=== PATIENT | male | born 1935 | race Caucasian/White ===

== ENCOUNTER 2018-10-09 17:23 | Emergency (ER) | payer OTHER ==
[~2018-10-09] VITALS: Ht 157.5 cm; Wt 61.6 kg
[~2018-10-09 17:23] MED LIST: AMLO5TAB4 PO; BENA20TA4 PO; DONE10TA7 PO; FOLI-49 PO; LEVO125T7 PO; SERT50TA6 PO; TERA2CAP3 PO
[2018-10-09 17:35] VITALS: Ht 157.5 cm; Wt 61.6 kg
[2018-10-09] MEDS ORDERED: ONDANSETRON 4 MG INJ IV STA (17:53)
[2018-10-09] MEDS ORDERED: morphine 4 MG/ML VIAL IV STA (17:53)
[2018-10-09] MEDS ORDERED: APIXABAN 5 MG TABLET PO ONE (19:00)
--- NOTE | 2018-10-09 21:20 | ERD ---
ER Documentation Chief Complaint Chief Complaint RIGHT LEG SWELLING, REDNESS X 2 WKS; SENT FOR R/O DVT; NO SOB. HPI Patient is an 82-year-old male with coronary disease, hypertension, anemia, and dementia who presents for right leg swelling. He started with right leg swelling 2 weeks ago. It went away but then came back 3 to 4 days ago. He was seen in the clinic today and was sent to the ER for further work-up. He complains of pain. He tried ibuprofen. ROS All systems reviewed and are negative except as per history of present illness. Medications Home Meds Reported Medications Amlodipine Besylate* (Norvasc*) 5 Mg Tablet, 5 MG PO DAILY, TAB 04/18/15 Sertraline Hcl* (Sertraline Hcl*) 50 Mg Tablet, 50 MG PO DAILY, #30 TAB 04/18/15 Levothyroxine Sodium* (Levothyroxine Sodium*) 125 Mcg Tablet, 125 MCG PO BEFORE BREAKFAST, #30 TAB 04/18/15 Terazosin Hcl* (Terazosin Hcl*) 2 Mg Capsule, 2 MG PO HS, CAP 04/18/15 Folic Acid* (Folic Acid*) 1 Mg Tablet, 1 MG PO DAILY, TAB 04/18/15 Benazepril Hcl* (Benazepril Hcl*) 20 Mg Tablet, 20 MG PO DAILY, #30 TAB 04/18/15 Donepezil* (Donepezil*) 10 Mg Tablet, 10 MG PO DAILY, #30 TAB 04/18/15 Allergies Allergies: Coded Allergies: No Known Allergies (Verified Allergy, Unknown, 09/22/15) PMhx/Soc History of Surgery: Yes (PROSTATE/hemorrhoids) Anesthesia Reaction: No Hx Neurological Disorder: No Hx Respiratory Disorders: No Hx Cardiac Disorders: Yes (HTN, HYPERLIPIDEMIA) Hx Psychiatric Problems: Yes (depression, dementia) Hx Miscellaneous Medical Probl: Yes (thyroid disease) Hx Alcohol Use: No Hx Substance Use: No Hx Tobacco Use: No Smoking Status: Never smoker FmHx Family History: No diabetes Physical Exam Vitals Vital Signs Date Temp Pulse Resp B/P (MAP) Pulse Ox O2 O2 Flow FiO2 Time Delivery Rate 10/09/18 97.4 67 12 130/77 98 Room Air 20:54 (94) 10/09/18 97.4 87 18 138/117 97 Room Air 19:55 (124) 10/09/18 97.4 69 18 120/72 97 Room Air 18:54 (88) 10/09/18 97.4 77 18 145/77 97 Room Air 18:05 (99) 10/09/18 97.4 82 18 151/81 97 17:35 (104) Physical Exam Const: No acute distress Head: Atraumatic Eyes: Normal Conjunctiva ENT: Normal External Ears, Nose and Mouth. Neck: Full range of motion. No meningismus. Resp: Clear to auscultation bilaterally Cardio: Regular rate and rhythm, no murmurs Abd: Soft, non tender, non distended. Normal bowel sounds Skin: No petechiae or rashes Back: No midline or flank tenderness Ext: Right leg swelling compared to the left with purplish discoloration Neur: Awake and alert Psych: Normal Mood and Affect Result Diagram: 10/09/18180410/09/181804 Results 24 hrs Laboratory Tests Test 10/09/18 18:05 White Blood Count 8.3 10^3/ul Red Blood Count 4.64 10^6/ul Hemoglobin 14.0 g/dl Hematocrit 40.1 % Mean Corpuscular Volume 86.4 fl Mean Corpuscular Hemoglobin 30.2 pg Mean Corpuscular Hemoglobin Concent 34.9 g/dl Red Cell Distribution Width 12.7 % Platelet Count 184 10^3/UL Mean Platelet Volume 9.1 fl Immature Granulocytes % 0.600 % Neutrophils % 74.8 % Lymphocytes % 15.0 % Monocytes % 8.1 % Eosinophils % 1.0 % Basophils % 0.5 % Nucleated Red Blood Cells % 0.0 /100WBC Immature Granulocytes # 0.050 10^3/ul Neutrophils # 6.2 10^3/ul Lymphocytes # 1.2 10^3/ul Monocytes # 0.7 10^3/ul Eosinophils # 0.1 10^3/ul Basophils # 0.0 10^3/ul Nucleated Red Blood Cells # 0.0 10^3/ul Prothrombin Time 12.7 Sec Prothrombin Time Ratio 1.0 INR International Normalized Ratio 0.94 Activated Partial Thromboplast Time 29.5 Sec Sodium Level 140 mmol/L Potassium Level 4.1 mmol/L Chloride Level 106 mmol/L Carbon Dioxide Level 23 mmol/L Anion Gap 11 Blood Urea Nitrogen 15 mg/dl Creatinine 0.99 mg/dl Est Glomerular Filtrat Rate mL/min mL/min Glucose Level 112 mg/dl Calcium Level 9.3 mg/dl Troponin I < 0.012 ng/ml Current Medications Medications Dose Sig/Raciel Start Time Status Last (Trade) Ordered Route PRN Stop Time Admin Dose Reason Admin Morphine 4 mg ONCE STAT 10/09/18 DC 10/09/18 Sulfate IV 17:53 17:59 (morphine) 10/09/18 17:55 Ondansetron 4 mg ONCE STAT 10/09/18 DC 10/09/18 HCl (Zofran IV 17:53 17:59 Inj) 10/09/18 17:55 Apixaban 10 mg ONCE ONCE 10/09/18 DC 10/09/18 (Eliquis) PO 19:00 19:07 10/09/18 19:01 Quetiapine 25 mg ONCE ONCE 10/09/18 10/09/18 Fumarate PO 21:30 21:13 (Seroquel) 10/09/18 21:31 Procedures/MDM Right lower extremity ultrasound shows positive for DVT per radiology.. Arterial ultrasound shows no acute arterial occlusion per radiology. Chest x-ray read by radiology. Patient is an 82-year-old male who presents with right leg swelling. Is found to have acute right-sided DVT. I gave a dose of Eliquis 10 mg by mouth. I spoke with Dr. Galeas from [facility] who is going to arrange transfer to a SNF and will dose outpatient anticoagulation at the SNF. I doubt pulmonary embolism at this time and the patient is in no distress. I doubt acute arterial occlusion. The patient will be discharged but can return for any worsening symptoms. He should follow-up with his primary doctor within 2 to 3 days. Departure Diagnosis: Primary Impression: DVT (deep vein thrombosis) in Additional Impression: Swelling Condition: Fair Patient Instructions: Dvt Additional Instructions: Llame al doctor MAANA y ugo nilson ARIS PARA DENTRO DE 2-3 COLLINS.Dgale a la secretaria que nosotros le instruimos hacer esta aris.Avise o llame si castellanos condicin se empeora antes de la aris. Regresa aqui si peor o no mejor. RUPA HINES MD Oct 09, 2018 21:20
[2018-10-09] MEDS ORDERED: QUETIAPINE 25 MG TAB PO ONE (21:30)
[2018-10-09] MEDS ORDERED: LORAZEPAM 2 MG INJ IV ONE (22:30)
[2018-10-09] MEDS ORDERED: APIX5TAB PO (23:48)
[2018-10-10] MEDS ORDERED: RANI150T5 PO (00:13)
[2018-10-10] MEDS ORDERED: LEVO75TA5 PO (00:13)
[2018-10-10] MEDS ORDERED: QUET25TA33 PO (00:13)
[2018-10-10 01:21] VITALS: BP 118/68; PULSE 60; RESP 12
== END 2018-10-10 01:21 | disposition home or self-care (01) ==
LOC: E/R 17:23
DX: I82.401 Acute embolism and thrombosis of unspecified deep veins of right lower extremity (principal); I10 Essential (primary) hypertension; I25.10 Atherosclerotic heart disease of native coronary artery without angina pectoris
CPT/HCPCS: 36415; 71045; 80048; 84484; 85025; 85610; 85730; 93922; 93971; 96374; 96375; 99285; J2060; J2270; J2405

== ENCOUNTER 2018-11-12 09:37 | Emergency (ER) | payer OTHER ==
[~2018-11-12] VITALS: Ht 162.6 cm; Wt 61.4 kg
[~2018-11-12 09:37] MED LIST changes: +APIX5TAB PO; -BENA20TA4 PO; -DONE10TA7 PO; +IBUP-1561 PO; +KTR.5OP5 BOTH EYES; -LEVO125T7 PO; +LEVO75TA5 PO; +OFLO5DRO46 LEFT EYE; +QUET25TA33 PO; +RANI150T5 PO; +TRAM50TA2 PO
[2018-11-12 09:50] VITALS: Ht 162.6 cm; Wt 61.4 kg
[2018-11-12 11:36] VITALS: BP 131/70; PULSE 88; RESP 20
--- NOTE | 2018-11-12 12:28 | ERD ---
ER Documentation Chief Complaint Chief Complaint left eye pain/irritation HPI 83-year-old male presenting with pain to his left eye. Patient was cutting a cactus at home and little bit of the milk from the cactus got into his eye and cause pain. He did not wear contacts or glasses. He tried cleaning it with refresh at home but no other medicine. Medical history is hypertension. NKDA. Surgical history denies. Social history denies ROS All systems reviewed and are negative except as per history of present illness. Medications Home Meds Active Scripts Ofloxacin* (Ocuflox*) 0.3%-5 Ml Ophth Drops, 1 DROP LEFT EYE QID, #1 BOTTLE Prov:KARLA SANABRIA PA-C 11/12/18 Apixaban* (Eliquis*) 5 Mg Tablet, 10 MG PO BID for 5 Days, TAB Prov:JACINTO ARIAS MD 10/09/18 Reported Medications Quetiapine Fumarate* (Quetiapine Fumarate*) 25 Mg Tablet, 25 MG PO HS, TAB 10/10/18 Ranitidine Hcl* (Ranitidine Hcl*) 150 Mg Tablet, 150 MG PO BID, #60 TAB 10/10/18 Levothyroxine Sodium* (Levothyroxine Sodium*) 75 Mcg Tablet, 75 MCG PO BEFORE BREAKFAST, #30 TAB 10/10/18 Amlodipine Besylate* (Norvasc*) 5 Mg Tablet, 5 MG PO QAM, TAB 04/18/15 Sertraline Hcl* (Sertraline Hcl*) 50 Mg Tablet, 50 MG PO QHS, #30 TAB 04/18/15 Terazosin Hcl* (Terazosin Hcl*) 2 Mg Capsule, 2 MG PO HS, CAP 04/18/15 Folic Acid* (Folic Acid*) 1 Mg Tablet, 1 MG PO DAILY, TAB 04/18/15 Allergies Allergies: Coded Allergies: No Known Allergies (Unverified Allergy, Unknown, 11/12/18) PMhx/Soc History of Surgery: Yes (PROSTATE/hemorrhoids) Anesthesia Reaction: No Hx Neurological Disorder: No Hx Respiratory Disorders: No Hx Cardiac Disorders: Yes (HTN, HYPERLIPIDEMIA) Hx Psychiatric Problems: Yes (depression, dementia) Hx Miscellaneous Medical Probl: Yes (thyroid disease) Hx Alcohol Use: No Hx Substance Use: No Hx Tobacco Use: No Smoking Status: Never smoker FmHx Family History: No diabetes, No coronary disease, No other Physical Exam Vitals Vital Signs Date Temp Pulse Resp B/P (MAP) Pulse Ox O2 O2 Flow FiO2 Time Delivery Rate 11/12/18 98.1 88 20 131/70 98 Room Air 11:36 (90) 11/12/18 98.1 86 20 127/74 98 09:50 (91) Physical Exam GENERAL: The patient is well-appearing, well-nourished, in no acute distress HEENT: Atraumatic. Conjunctivae are pink. Pupils equal, round, and reactive to light. There is no scleral icterus. Tympanic membranes clear bilaterally. Oropharynx clear. NECK: C-spine is soft and supple. There is no meningismus. There is no cervical lymphadenopathy. CHEST: Clear to auscultation bilaterally. There are no rales, wheezes or rhonchi. HEART: Regular rate and rhythm. No murmurs, clicks, rubs or gallops. Procedures/MDM ER course: Harshad lens was used in the ER to irrigate the eye. Patient tolerated procedure well. MDM: 83-year-old male presenting with irritation to left eye. I have low suspicion for ocular deficit or retained foreign body. 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 Patient is discharged with strict ER precautions. I have low suspicion for other injury at this time and I do not feel blood work or imaging is indicated. Patient told to follow-up with primary care. All questions answered at discharge Departure Diagnosis: Primary Impression: Chemical exposure of eye Condition: Stable Patient Instructions: Eye Exposure, Chemical Referrals: [facility] Hours: Sat - Sat 9:00 AM - 5:00 PM Additional Instructions: FOLLOW UP WITH YOUR PRIMARY CARE PHYSICIAN TOMORROW.Return to this facility if you are not improving as expected. KARLA SANABRIA PA-C Nov 12, 2018 12:28
== END 2018-11-12 11:42 | disposition home or self-care (01) ==
LOC: FTE 09:37
DX: T62.2X1A Toxic effect of other ingested (parts of) plant(s), accidental (unintentional), initial encounter (principal); I10 Essential (primary) hypertension
CPT/HCPCS: 99283

== ENCOUNTER 2018-11-12 18:34 | Emergency (ER) | payer OTHER ==
[~2018-11-12] VITALS: Ht 162.6 cm; Wt 61.4 kg
[2018-11-12 18:38] VITALS: BP 138/74; PULSE 73; RESP 16; Ht 162.6 cm; Wt 61.4 kg
[2018-11-12] MEDS ORDERED: IBUPROFEN 200 MG TAB PO ONE (19:30)
[2018-11-12] MEDS ORDERED: traMADol 50 MG TAB PO ONE (19:30)
--- NOTE | 2018-11-12 19:35 | ERD ---
ER Documentation Chief Complaint Chief Complaint worsening bilateral eye pain w/ erythema, seen today for same HPI 83-year-old male presents with bilateral eye burning. Was seen here this morning after getting some from a cactus in his eyes while gardening. He had no significant findings on eye examination. Patient is requesting p.o. meds for pain. Patient has an ophthalmology appointment pending. Patient describes a plan there is a skinny cactus. ROS All systems reviewed and are negative except as per history of present illness. Medications Home Meds Active Scripts Ketorolac Tromethamine (Acular) 5 Ml Drops, 5 ML BOTH EYES QID for 5 Days, BOTTLE Prov:JOHN LAWRENCE MD 11/12/18 Ibuprofen* (Motrin*) 400 Mg Tab, 400 MG PO Q6, #15 TAB Prov:JOHN LAWRENCE MD 11/12/18 Tramadol HCl (Tramadol HCl) 50 Mg Tablet, 50 MG PO Q4 PRN for PAIN, #15 TAB Prov:JOHN LAWRENCE MD 11/12/18 Ofloxacin* (Ocuflox*) 0.3%-5 Ml Ophth Drops, 1 DROP LEFT EYE QID, #1 BOTTLE Prov:KARLA SANABRIA PA-C 11/12/18 Apixaban* (Eliquis*) 5 Mg Tablet, 10 MG PO BID for 5 Days, TAB Prov:JACINTO ARIAS MD 10/09/18 Reported Medications Quetiapine Fumarate* (Quetiapine Fumarate*) 25 Mg Tablet, 25 MG PO HS, TAB 10/10/18 Ranitidine Hcl* (Ranitidine Hcl*) 150 Mg Tablet, 150 MG PO BID, #60 TAB 10/10/18 Levothyroxine Sodium* (Levothyroxine Sodium*) 75 Mcg Tablet, 75 MCG PO BEFORE BREAKFAST, #30 TAB 10/10/18 Amlodipine Besylate* (Norvasc*) 5 Mg Tablet, 5 MG PO QAM, TAB 04/18/15 Sertraline Hcl* (Sertraline Hcl*) 50 Mg Tablet, 50 MG PO QHS, #30 TAB 04/18/15 Terazosin Hcl* (Terazosin Hcl*) 2 Mg Capsule, 2 MG PO HS, CAP 04/18/15 Folic Acid* (Folic Acid*) 1 Mg Tablet, 1 MG PO DAILY, TAB 04/18/15 Allergies Allergies: Coded Allergies: No Known Allergies (Unverified Allergy, Unknown, 11/12/18) PMhx/Soc History of Surgery: Yes (PROSTATE/hemorrhoids) Anesthesia Reaction: No Hx Neurological Disorder: No Hx Respiratory Disorders: No Hx Cardiac Disorders: Yes (HTN, HYPERLIPIDEMIA) Hx Psychiatric Problems: Yes (depression, dementia) Hx Miscellaneous Medical Probl: Yes (thyroid disease) Hx Alcohol Use: No Hx Substance Use: No Hx Tobacco Use: No Smoking Status: Never smoker FmHx Family History: No diabetes, No coronary disease, No other Physical Exam Vitals Vital Signs Date Temp Pulse Resp B/P (MAP) Pulse Ox O2 O2 Flow FiO2 Time Delivery Rate 11/12/18 97.7 73 16 138/74 98 18:38 (95) Physical Exam Const: No acute distress Head: Atraumatic Eyes: Normal Conjunctiva and bilateral scleral redness. Eyes Rene and extract movements intact. ENT: Normal External Ears, Nose and Mouth. Neck: Full range of motion. No meningismus. Resp: Clear to auscultation bilaterally Cardio: Regular rate and rhythm, no murmurs Abd: Soft, non tender, non distended. Normal bowel sounds Skin: No petechiae or rashes Back: No midline or flank tenderness Ext: No cyanosis, or edema Neur: Awake and alert Psych: Normal Mood and Affect Results 24 hrs Current Medications Medications Dose Sig/Raciel Start Time Status Last (Trade) Ordered Route PRN Stop Time Admin Dose Reason Admin Tramadol 50 mg ONCE ONCE 11/12/18 DC HCl PO 19:30 (Ultram) 11/12/18 19:31 Ibuprofen 400 mg ONCE ONCE 11/12/18 DC (Motrin) PO 19:30 11/12/18 19:31 Procedures/MDM Intraocular pressure, visual acuity and fluorescein deferred given no appreciable significant abnormal findings today. 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 Patient has an ophthalmology appointment pending which is advised for evaluation for cyclosporine treatment. Patient shows no signs or symptoms or history to suggest ulcer, visual changes, visual field deficits, additional concerning abnormalities. He was given symptomatic treatment with proparacaine drops. He will be treated with tramadol, ketorolac eyedrops, ibuprofen, recommendations for ophthalmology as directed. Patient has no signs or symptoms of visual changes, visual field deficits. There are no signs or symptoms to suggest orbital cellulitis, retinal detachment, optic neuritis, retinal artery ischemia, dendritic lesions, ulcers, threats to vision or additional eye emergencies. Doubt acute glaucoma. Patient will be discharged home with recommendations for primary care and ophthalmology follow-up within the next 1-2 days. They should otherwise return to the ER for persistent or worsening s ymptoms. Departure Diagnosis: Primary Impression: Chemical exposure of eye Condition: Stable Patient Instructions: Eye Exposure, Chemical Referrals: ADOLFO VALENCIA (PCP) Additional Instructions: Likely exposure to you for via or pencil cactus. Pain may last several days. See ophthalmology as scheduled. Recheck otherwise for new or worsening symptoms. JOHN LAWRENCE MD Nov 12, 2018 19:35
== END 2018-11-12 19:45 | disposition home or self-care (01) ==
LOC: FTE 18:34
DX: T65.94XA Toxic effect of unspecified substance, undetermined, initial encounter (principal); I10 Essential (primary) hypertension; X58.XXXA Exposure to other specified factors, initial encounter; Y92.9 Unspecified place or not applicable
CPT/HCPCS: 99283